=== PATIENT | female | born 1950 | race Two or more races ===

== ENCOUNTER 2020-10-10 19:04 | Emergency (ER) | payer MEDICARE, MEDICAID ==
[~2020-10-10] VITALS: Ht 152.4 cm; Wt 57.3 kg
[2020-10-10 19:49] VITALS: BP 137/71
[2020-10-10] MEDS ORDERED: AZIT250T2 PO (21:29)
[2020-10-10] MEDS ORDERED: ALBU6.7H9 INH (21:29)
== END 2020-10-10 21:53 | disposition home or self-care (01) ==
LOC: ER 19:05
DX: J06.9 Acute upper respiratory infection, unspecified (principal); Z20.822 Contact with and (suspected) exposure to COVID-19
CPT/HCPCS: 87635; 99283; C9803